=== PATIENT | female | born 1970 | race Caucasian/White ===

== ENCOUNTER 2018-03-25 20:42 | Emergency (ER) | payer MEDICAID, SELFPAY ==
[2018-03-25 20:43] VITALS: BP 125/89; PULSE 97; RESP 18; TEMP 36.7; O2SAT 99; BMI 26.9
--- NOTE | 2018-03-25 21:17 | CT_ITS ---
STUDY: CT BRAIN WITHOUT CONTRAST REASON FOR EXAM: Female, 47 years old. Confusion RADIATION DOSAGE (If Supplied By Facility): CTDIvol = ( 44.99 ) mGy, DLP = ( 779.24 ) mGycm TECHNIQUE: Transaxial CT imaging of the brain was performed without administration of intravenous contrast material. Individualized dose optimization techniques were used for this CT. COMPARISON: October 05, 2013 FINDINGS: Normal soft tissue structures. Normal calvarium. Normal size ventricles and extra-axial spaces for the patient's age. Normal white matter tracts of the cerebral hemispheres. Normal basal ganglia and thalami. Normal brainstem. Normal cerebellum. There is no intracranial hemorrhage. There are no findings of an acute ischemic infarction. Normal visualized paranasal sinuses. No significant change since prior exam CT/Brain/Head without Contrast IMPRESSION: Normal unenhanced CT scan of the brain. Electronically Signed: Oseas Cheek MD at 22:10 EDT , Service support ,
--- NOTE | 2018-03-25 21:17 | EKG12_ITS ---
Test Reason : ALT LOC Blood Pressure : / mmHG Vent. Rate : 087 BPM Atrial Rate : 087 BPM P-R Int : 134 ms QRS Dur : 084 ms QT Int : 372 ms P-R-T Axes : 067 077 064 degrees QTc Int : 447 ms Normal sinus rhythm Normal ECG Confirmed by CAMMY ZAMBRANO, MORAIMA ([id number]), video editor CHIRAG MATTHEWS ([id number]) on 03/29/2018 1:57:13 PM Referred By: DEANDRE Confirmed By:MORAIMA CHAWLA MD
--- NOTE | 2018-03-25 21:22 | NURSING ---
NO OLD EKG
[2018-03-25 21:30] LABS: Bedside Glucose 113 mg/dL (70-110)
[2018-03-25 21:55] LABS: Absolute Lymphocyte Count 1.53 X10^3/ul (0.83-4.51); Absolute Neutrophil Count 5.1 X10^3/uL (2.0-7.7); Basophil# 0.01 X10^3/uL; Basophil% 0.1 % (0-1); Eosinophil# 0.06 X10^3/uL; Eosinophils% 0.8 % (0-5); Hemoglobin 13.3 g/dl (12.0-15.0); Lymphocyte # 1.53 X10^3/ul (4.0); Lymphocyte % 21.6 % (19-41); Mean Corp Hgb Conc 32.4 g/gl (32-36); Mean Corpuscular Hgb 27.9 pg (27.0-32.0); Mean Platelet Vol. 8.9 fl (6.2-12.0); Monocyte# 0.38 X10^3/uL; Monocyte% 5.4 % (0-10); Neutrophil % 72.1 % (47-70); Platelet Count 203 K/mm3 (150-450); RBC Distribution Width CV 12.8 % (11.6-14.6); RBC Distribution Width SD 40.5 fl (35.1-43.9); Red Blood Count 4.77 M/mm3 (4.2-5.4); White Blood Count 7.1 K/mm3 (4.4-11.0)
[2018-03-25 21:58] LABS: Partial Thromboplast Time 29.8 Seconds (24.1-36.2); Prothrombin Time (Protime)PT. 12.9 SECONDS (11.7-14.9)
--- NOTE | 2018-03-25 22:00 | RAD_ITS ---
STUDY: X-RAY CHEST REASON FOR EXAM: Female, 47 years old. Drowsiness TECHNIQUE: AP portable COMPARISON: None. FINDINGS: There appear to be mild chronic interstitial changes in the lower lobes. There are no focal lobar infiltrates.. There is no demonstrated pleural abnormality. Normal size heart. Normal mediastinum and jo ann. Normal visualized pulmonary arteries. Normal visualized aortic arch and descending thoracic aorta. Normal visualized thoracic spine. Normal visualized ribs, clavicles, and shoulders. There is no demonstrated abnormality of the visualized soft tissue structures of the upper abdomen. RAD/Chest 1 View IMPRESSION: Minor chronic interstitial changes in the lower lobes Electronically Signed: Oseas Cheek MD at 22:28 EDT , Service support ,
[2018-03-25 22:05] LABS: Anion Gap 4 (5-15); BUN 19 mg/dL (7-18); BUN/Creat Ratio 17.3 RATIO (10-20); Calcium,Total 8.8 mg/dL (8.5-10.1); Chloride 106 mmol/L (98-107); EST Glomerular Filtration Rate 56 mL/min (>60); Est Glom Filt Rate - Afr Amer 68 mL/min (>60); Glucose 108 mg/dL (74-106); Potassium 4.4 mmol/L (3.5-5.1); Sodium Level 141 mmol/L (136-145)
[2018-03-25 22:07] VITALS: BP 130/78; PULSE 85; RESP 14; O2SAT 98
[2018-03-25 22:07] LABS: Alcohol, Blood (Medical)-Serum < 3.0 mg/dL
[2018-03-25 22:08] VITALS: BP 136/78; PULSE 89; RESP 14; O2SAT 99
[2018-03-25 22:10] LABS: POSITIVE COUNT NO; POSITIVE DIFFERENTIAL NO; POSITIVE MORPHOLOGY NO
[2018-03-25 22:30] VITALS: BP 123/83; PULSE 97; RESP 20; O2SAT 98
[2018-03-25 23:00] VITALS: BP 123/63; BP 123/83; PULSE 91; PULSE 92; RESP 22; O2SAT 97
[2018-03-25 23:30] VITALS: BP 123/83; PULSE 89; RESP 16; O2SAT 98
[2018-03-25 23:33] LABS: Amphetamine Urine VISTA POSITIVE (<1000 ng/mL); Barbiturate Urine VISTA NEGATIVE (< 200 ng/mL); Benzodiazepine Urine VISTA NEGATIVE (< 200 ng/mL); Cocaine Urine VISTA NEGATIVE (< 300 ng/mL); Ecstacy Urine VISTA POSITIVE (< 500 ng/mL); Methadone Urine VISTA NEGATIVE (< 300 ng/mL); PCP Urine VISTA NEGATIVE (< 25 ng/mL); THC Urine VISTA NEGATIVE (< 50 ng/mL); Vista UDS pH Range 7
[2018-03-26 00:07] VITALS: BP 132/81; PULSE 90; RESP 15; O2SAT 98
[2018-03-26] MEDS: Ondansetron 4 MG/2 ML Vial IV (00:08)
--- NOTE | 2018-03-26 00:11 | ED.DCSUM_ITS ---
- ER Visit Summary Date of Service: 03/26/18 Chief Complaint: Confusion History of Present Illness: The patient is a 47 F presenting with confusion. Patient was at [facility] and was confused and did not know where she was. EMS was called. On their arrival she was A and O ?3. They stated that she was drowsy. On arrival to the ED patient is unsure what happened. She states she believes she felt off balance when she walked. She had nausea vomiting earlier today. She has had mild constipation. Denies fever. Denies chest pain or shortness of breath. Denies other complaints. Physical Examination: Vitals are stable. Patient is afebrile. Alert no acute distress. HEENT exam is unremarkable. Neck is supple. No meningismus Lungs are clear and equal bilaterally. Heart is regular rate and rhythm. Abdomen is soft nontender nondistended. No rebound or guarding Extremities are unremarkable. Normal pulses bilaterally. Skin is warm and dry. No focal neurologic deficit. NIH 0 Remainder of exam is unremarkable. Emergency Department Course and Treatment: EKG is sinus rate of 87 with no acute ischemic changes. Chest x-ray shows chronic changes. CT head normal. CBC, chemistries unremarkable. INR 1.0. Troponin is negative. Alcohol is negative. Tox screen positive for methamphetamine, amphetamine. Patient states that 3 days ago she used methamphetamine to treat her migraine headache. She denies any drug use today. Due to her symptoms, discussed admission with the patient for further observation and testing. She does not want to stay in the hospital. She is no longer confused and is answering questions appropriately. She understands the risks of leaving including stroke and . She signed out AGAINST MEDICAL ADVICE. Disposition: Left AGAINST MEDICAL ADVICE Impression: Confusion, resolved This note was generated with [employer] dictation software. It may contain incorrect words, spelling, and punctuation that were not noted in review of the chart prior to signing ED Disposition - Plan for ED Patient: Chief Complaint: Alt LOC Referrals: Felicia Venegas MD [Primary Care Provider] -
--- NOTE | 2018-03-26 00:11 | ED.DEP ---
ED Disposition - Plan for ED Patient: Chief Complaint: Alt LOC Instructions: ED Altered Loc Referrals: Felicia Venegas MD [Primary Care Provider] - Shanon Torres MD [STAFF PHYSICIAN] -
[2018-03-26 00:32] VITALS: BP 128/81; PULSE 89; RESP 16; O2SAT 98
== END 2018-03-26 00:32 | disposition home or self-care (01) ==
PROVIDERS: Emergency Provider Emergency Medicine; Family Provider Family Medicine; PCP Family Medicine
DX: R41.0 Disorientation, unspecified (principal)
CPT/HCPCS: 70450; 71045; 80048; 80307; 80320; 82962; 84484; 85025; 85610; 85730; 93005; 99285; A4216; G0480

== ENCOUNTER 2018-03-29 19:16 | Emergency (ER) | payer MEDICAID, SELFPAY ==
[2018-03-29 19:17] VITALS: BP 120/86; PULSE 84; RESP 16; TEMP 36.6; O2SAT 99; BMI 24.7
[2018-03-29] MEDS: 0.9% Normal Saline 1,000 ML 1000 ML IV (20:06)
[2018-03-29 20:10] LABS: Bacteria 0 SEEN /hpf (None Seen); Mucous, Urine 0 SEEN /hpf (<or=2+)
[2018-03-29 20:14] LABS: Color, Urine Yellow (Yellow); Glucose, Dipstick Normal (Normal); Ketone-Dipstick Negative (Negative); Leukocyte Esterase-Dipstick 25 /ul (Negative); Nitrite-Dipstick Negative (Negative); Occult Blood-Urine 10 /ul (Negative); Protein-Dipstick 15 mg/dl (Negative); Urine Bilirubin Dipstick Negative (Negative); Urine Clarity Sl. Cloudy (Clear); Urine Urobilinogen 1 mg/dl (Normal)
[2018-03-29 20:28] LABS: Calcium Oxalate Crystals Ur 1+ /hpf (<or=2+); Red Blood Cells-Urine 0-5 SEEN /hpf (0-5); Squamous Epithelial Cells - UA 5-10 SEEN /hpf (5-10); White Blood Cells 0-5 SEEN /hpf (0-5)
[2018-03-29 20:29] LABS: ALB/GLOB Ratio 0.8 RATIO (0.9-2.4); AST(SGOT) 22 U/L (15-37); Alanine Aminotransfer ALT/SGPT 25 U/L (13-56); Albumin, Serum 3.4 g/dL (3.2-5.0); Alkaline Phosphatase 82 U/L (45-117); Anion Gap 5 (5-15); BUN 17 mg/dL (7-18); BUN/Creat Ratio 22.8 RATIO (10-20); Calcium,Total 8.8 mg/dL (8.5-10.1); Chloride 104 mmol/L (98-107); Creatinine, Serum 0.75 mg/dL (0.55-1.02); EST Glomerular Filtration Rate 88 mL/min (>60); Est Glom Filt Rate - Afr Amer 107 mL/min (>60); Estimated Creatinine Clearance 76.71 ml/min; Globulin 4.1 g/dL (2.2-4.2); Glucose 99 mg/dL (74-106); Lipase 198 U/L (73-393); Potassium 4.3 mmol/L (3.5-5.1); Protein, Total 7.5 g/dL (6.4-8.2); Sodium Level 139 mmol/L (136-145)
[2018-03-29 20:30] LABS: Absolute Neutrophil Count 3.3 X10^3/uL (2.0-7.7); Basophil# 0.01 X10^3/uL; Basophil% 0.2 % (0-1); Eosinophil# 0.08 X10^3/uL; Eosinophils% 1.5 % (0-5); Hemoglobin 13.9 g/dl (12.0-15.0); Lymphocyte % 31.2 % (19-41); Mean Corp Hgb Conc 32.3 g/gl (32-36); Mean Corpuscular Hgb 27.6 pg (27.0-32.0); Mean Corpuscular Volume 85.3 fL (81-99); Mean Platelet Vol. 9.1 fl (6.2-12.0); Monocyte# 0.41 X10^3/uL; Monocyte% 7.5 % (0-10); Neutrophil # 3.25 X10^3/uL (2.7-7.7); Neutrophil % 59.6 % (47-70); Platelet Count 204 K/mm3 (150-450); RBC Distribution Width CV 12.8 % (11.6-14.6); Red Blood Count 5.04 M/mm3 (4.2-5.4); White Blood Count 5.5 K/mm3 (4.4-11.0)
[2018-03-29] MEDS: Dicyclomine 10 MG Capsule 20 MG PO (20:34)
--- NOTE | 2018-03-29 20:34 | CT_ITS ---
STUDY: CT ABDOMEN AND PELVIS WITHOUT CONTRAST REASON FOR EXAM: Female, 47 years old. Right flank pain RADIATION DOSAGE (If Supplied By Facility): CTDIvol = ( 8.90 ) mGy, DLP = ( 418.07 ) mGycm TECHNIQUE: Transaxial images were obtained from the dome of the diaphragm to the symphysis pubis without oral contrast, and without intravenous contrast. Sagittal and coronal images were reconstructed. Individualized dose optimization techniques were used for this CT. COMPARISON: Prior study of 03/14/2016 FINDINGS: Bilateral breast implants are seen. The visualized lung bases are unremarkable. The visualized portions of the heart are within normal limits. Normal liver. Normal gallbladder and extrahepatic biliary system. Normal spleen. Normal pancreas. Normal bilateral adrenal glands. Normal right kidney. There is a 1.1 cm low-attenuation structure of the left kidney most likely representing a cyst, stable in the interval. Normal visualized stomach. Normal small intestine. Normal colon. There is non-visualization of the appendix. Normal abdominal aorta. Normal inferior vena cava. Normal retroperitoneum. Normal urinary bladder. There is absence of the uterus consistent with a prior hysterectomy. There is a small umbilical hernia containing fat. Normal osseous structures. CT/Abdomen/Pelvis without Cont IMPRESSION: 1. 1.1 cm low-attenuation structure of the left kidney most likely representing a cyst, stable in the interval. 2. Status post hysterectomy. 3. Small fat-containing umbilical hernia. 4. There is no evidence of nephro or ureterolithiasis, hydronephrosis, or hydroureter. No abnormal free or loculated intra-abdominal or intrapelvic air or fluid is noted. Electronically Signed: Ronald Smith MD at 21:21 EDT , Service support ,
--- NOTE | 2018-03-29 20:36 | ED.VISSUMM ---
- ER Visit Summary Date of Service: 03/29/18 Chief Complaint: Abdominal pain History of Present Illness: The patient is a 47 F states that she was seen last , March 25 on a confusional episode at a store. At that time she had methamphetamines in her system. She signed out AGAINST MEDICAL ADVICE. Patient states that since that time she has been having abdominal pain particularly in the right side. She states it radiates towards her back. She had dry heaves. She states that she has had some diarrhea. She denies any urinary symptoms such as dysuria hematuria or frequency. She denies any fevers. She has had a hysterectomy and tubal ligation. Physical Examination: Afebrile vital signs are stable Gen: Well-nourished well-developed patient is curled up in a ball holding a pillow on her abdomen and whimpering. Head: Normocephalic atraumatic Eyes: Perrl EOMI ENT: TMs clear no rhinorrhea moist mucous membranes Neck: Supple no lymphadenopathy no JVD nontender CVS: Regular rate rhythm no murmurs normal S1-S2 Respiratory: No distress clear to auscultation bilaterally chest nontender Abdomen: Soft nondistended normal bowel sounds no masses tender palpation of the right lateral abdomen. Back: Nontender there is no CVA tenderness. Extremity: Nontender no edema Skin: Normal color no rash Neuro: alert orientated ?3 CN II-XII intact normal strength sensation reflexes gait cerebellar Psych: Normal affect normal mood Test Results: Basic labs were negative. Urinalysis negative. Urine drugs of abuse is positive for amphetamines. CT the abdomen pelvis shows no acute findings. Emergency Department Course and Treatment: Patient requests that any abnormalities seen in her workup today only be discussed with her and not her /family. She received a dose of Bentyl for pain. The patient received IV fluids. The patient states she has not done any amphetamines since last week on . She states she did it only because it has the opposite effect on her and takes her pain from her migraines which have now come back away. I would have to argue this because she was found in a store confused. I believe there is probably some degree of withdrawal in this patient. She will be discharged home to follow-up with her doctor. Will write for prescription of Bentyl to hopefully help with her pain. Impression: 1. Acute abdominal pain This note was generated with Dragon dictation software. It may contain incorrect words, spelling, and punctuation that were not noted in review of the chart prior to signing ED Disposition - Plan for ED Patient: Disposition: Home or Assisted Living Chief Complaint: Abd Pain Instructions: Understanding Methamphetamine Abuse and Addiction, ED Abdominal Pain Unkn Cause Prescriptions: Dicyclomine HCl [Bentyl] 20 mg PO TIDAC PRN #20 cap PRN Reason: Cramp Referrals: Felicia Venegas MD [Primary Care Provider] - 1 Day
[2018-03-29 20:40] LABS: POSITIVE COUNT NO; POSITIVE DIFFERENTIAL NO; POSITIVE MORPHOLOGY NO
[2018-03-29 21:35] VITALS: BP 138/74; PULSE 89; RESP 19; O2SAT 96
[2018-03-29 21:53] LABS: Amphetamine Urine VISTA POSITIVE (<1000 ng/mL); Barbiturate Urine VISTA NEGATIVE (< 200 ng/mL); Benzodiazepine Urine VISTA NEGATIVE (< 200 ng/mL); Cocaine Urine VISTA NEGATIVE (< 300 ng/mL); Ecstacy Urine VISTA NEGATIVE (< 500 ng/mL); Methadone Urine VISTA NEGATIVE (< 300 ng/mL); PCP Urine VISTA NEGATIVE (< 25 ng/mL); THC Urine VISTA NEGATIVE (< 50 ng/mL); Vista UDS pH Range 6
== END 2018-03-29 22:33 | disposition home or self-care (01) ==
PROVIDERS: Emergency Provider Emergency Medicine; Family Provider Family Medicine; PCP Family Medicine
DX: R10.9 Unspecified abdominal pain (principal); F15.10 Other stimulant abuse, uncomplicated
CPT/HCPCS: 74176; 80053; 80307; 81001; 83690; 85025; 96360; 96361; 99283; J7030; A4216